=== PATIENT | male | born 1965 | race Caucasian/White ===

== ENCOUNTER 2021-10-29 20:49 | Emergency (ER) | payer BC, MEDICAID, OTHER ==
[2021-10-29] MEDS: Nitroglycerin 0.4 MG Tab.SL SL ONE (20:50)
[2021-10-29] MEDS: Aspirin 81 MG Tab.Chew ONE (21:11)
[2021-10-29 21:32] LABS: CHLORIDE,CL 102 mmol/L (98-107); SODIUM,NA 138 mmol/L (136-145)
[2021-10-29 21:39] LABS: ANION GAP 17.9 meq/L (7-15)
[2021-10-29 22:20] LABS: PTT,PARTIAL THROMBOPLSTIN TIME 28.1 SEC (23.6-29.8)
[2021-10-30] MEDS: Potassium Chloride 10 MEQ Tab.ER PO ONE (00:45)
[2021-10-30 01:15] VITALS: PULSE 92
[2021-10-30 01:29] VITALS: BP 146/75
== END 2021-10-30 00:45 | disposition home or self-care (01) ==
LOC: LL.ED 20:49
DX: R07.2 Precordial pain (principal); I10 Essential (primary) hypertension; K21.9 Gastro-esophageal reflux disease without esophagitis; Z88.5 Allergy status to narcotic agent; Z91.09 Other allergy status, other than to drugs and biological substances; Z79.899 Other long term (current) drug therapy; Z91.048 Other nonmedicinal substance allergy status
CPT/HCPCS: 36415; 71045; 80053; 80307; 83605; 84484; 85025; 85610; 85730; 93005; 99284; 99285-25; A9270-GY